=== PATIENT | female | born 1945 | race Caucasian/White ===

== ENCOUNTER → 2023-05-23 09:33 | Outpatient (REF) | payer OTHER, SELFPAY | LOC: RAD 09:33 | PROVIDERS: ATTENDING PHYSICIAN Family Medicine | DX: R05.3 Chronic cough (principal) | CPT/HCPCS: 71046 ==

== ENCOUNTER → 2023-08-26 14:27 | Outpatient (REF) | payer OTHER, SELFPAY | LOC: WDC 14:27 | PROVIDERS: ATTENDING PHYSICIAN Family Medicine | DX: Z12.31 Encounter for screening mammogram for malignant neoplasm of breast (principal); M81.0 Age-related osteoporosis without current pathological fracture | CPT/HCPCS: 77063; 77067; 77080 ==

== ENCOUNTER → 2024-04-02 06:48 | Outpatient (REF) | payer OTHER, SELFPAY | LOC: RAD 06:48 | PROVIDERS: ATTENDING PHYSICIAN Family Medicine | DX: I25.10 Atherosclerotic heart disease of native coronary artery without angina pectoris (principal) | CPT/HCPCS: 76770; 93880; 93925 ==

== ENCOUNTER 2024-07-16 21:25 | Emergency (ER) | payer OTHER, SELFPAY ==
[2024-07-16 21:28] VITALS: BP 102/73
[2024-07-17] MEDS: TYLENOL 1000 MG PO (00:33)
--- NOTE | 2024-07-17 02:26 | ED.GENMED ---
History of Present Illness
General
Chief Complaint: Musculo-Skeletal Complaint
Source: patient
Exam Limitations: none
Time Seen by Provider: 07/16/24 23:03
Nursing documentation reviewed up to this point in time: agreed with
History of Present Illness
History of Present Illness:
79-year-old female past medical history of CAD hypertension hyperlipidemia, diabetes presenting to the emergency department today with concerns of a mechanical fall hitting her right hip and left side of her head did not lose consciousness no nausea
vomiting numbness or weakness. Does have achiness somewhat diffusely maximal at the right hip.
Past History
Past History
ED Past Medical History: IDDM
ED Past Surgical History: Negative Cardiac
Social History
Tobacco: Non-smoker
Alcohol: Occasional
Drug: None
Living: with family
Employment: Retired
Family History
Family History: Diabetes
Review of Systems
Review of Systems
Allergies reviewed?: Yes
All Other Systems: ROS reviewed and negative except as documented in HPI and ROS
Phy Exam
Physical Exam
Physical Exam:
GENERAL: Alert , in no apparent distress
EYE: pupils equal and reactive
NECK: Supple, no significant adenopathy.
ENT: o/p clr, mmm.
CARDIAC: Regular rate and rhythm .
LUNGS: Clear breath sounds bilaterally, no acute respiratory distress, no wheezes/rales/rhonchi
ABDOMEN: Soft, without focal tenderness, no r/g, no cvat
NEUROLOGICAL: Alert and oriented, no focal neuro deficits 5 out of 5 upper and lower extremity strength normal sensation when palpating bilaterally normal finger-nose and [id number].
SKIN: Warm and dry, skin intact.
MUSCULOSKELETAL: No edema, well perfused.
PSYCH: Normal and appropriate interaction.
Course
Orders/Labs/Results
Orders:
Orders
07/17/24 00:21
CT Cervical Spine W/o Iv Contr Urgent
Comment:
Reason For Exam: fall neck pain
CT Head W/o Iv Contrast Urgent
Comment:
Reason For Exam: fall hit head
Ice Pack-Treatment DIRECTED
Location: anywhere/everywhere
Acetaminophen [Tylenol] 1,000 mg PO NOW STA
Hip, Right 2-3 Views [CR Hip - RT w/wo Pel 2-3 Vw*] Urgent
Comment:
Reason For Exam: hip pain
Include a pelvis x-ray?: Yes
Lumbar Spine, 2 or 3 View [CR Lumbar Spine 2 Or 3 Views] Urgent
Comment:
Reason For Exam: low aback pain
Vital Signs
Initial and Last Documented VS:
Initial Vital Signs
Temp Pulse Resp BP Pulse Ox
98.5 F 83 18 102/73 98
07/16/24 21:28 07/16/24 21:28 07/16/24 21:28 07/16/24 21:28 07/16/24 21:28
Last Documented Vital Signs
Temp Pulse Resp BP Pulse Ox
98.5 F 83 18 102/73 98
07/16/24 21:28 07/16/24 21:28 07/16/24 21:28 07/16/24 21:28 07/16/24 21:28
MDM/Problems Addressed
MDM/Problems Addressed:
79-year-old female presenting to the emergency department today with concerns of mechanical fall. Here she had head CT neck CT imaging of her right hip and low back without emergent injury. Patient with likely soft tissue injury plan for
symptomatic treatment stable for discharge return precautions given.
*Critical Care Note
Total Time (30-74mins, 75-104mins- exclusive of procedures): Not Applicable
ED Attending Note
-
Portions of this chart may have been created with voice recognition software.� Occasional wrong word or��sound alike� substitutions may have occurred due to the inherent limitations of voice recognition software.
Discharge Plan
Departure
Patient Disposition: Home (Routine Discharge)
Date of Disposition: 07/17/24
Time of Disposition: 02:28
Patient with high blood pressure during this ER visit?: No
Condition: Good
Covid-19: Not Applicable
Discharge Problem:
Fall
Instructions: Fall Prevention for Older Adults
Prescriptions:
No Action
metoprolol tartrate 100 MG tablet
100 mg PO BID
Patient Comments:
Lopressor
levothyroxine 50 MCG tablet
50 mcg PO DAILY
Patient Comments:
pat takes synthroid, not generic
ezetimibe 10 MG tablet
10 mg PO DAILY
rosuvastatin 20 MG tablet
20 mg PO HS
omeprazole magnesium [Prilosec OTC] 20 MG tablet,delayed release (DR/EC)
20 mg PO DAILY
valsartan-hydrochlorothiazide 1 EACH tablet
1 ea PO DAILY
Patient Comments:
160/25
pioglitazone 30 MG tablet
30 mg PO DAILY
Trulicity
1 dose INJ WEEKLY
Patient Comments:
pt not aware of dosage, pt took this this morning
acetaminophen 325 MG tablet
650 mg PO Q4HWA 0RF
Coq10
1 tab PO DAILY
aspirin 325 MG tablet
81 mg PO DAILY
famotidine 20 MG tablet
20 mg PO BID Qty: 28 0RF
Rx Instructions:
Take 20 mg twice a day for 14 days
ascorbic acid (vitamin C) [Vitamin C] 500 MG tablet
1,000 mg PO BID Qty: 56 0RF
Rx Instructions:
Take 1,000 mg twice a day for 14 days
albuterol sulfate 1 PUFF HFA aerosol inhaler
2 puff inhalation R Q4HPRN PRN (Reason: shortness of breath) Qty: 1 0RF
zinc sulfate 220 MG capsule
220 mg PO DAILY Qty: 14 0RF
Rx Instructions:
Take 220 mg daily for 14 days
cholecalciferol (vitamin D3) 1,000 UNITS tablet
2,000 units PO DAILY Qty: 28 0RF
Rx Instructions:
Take 2,000 units daily for 14 days
melatonin 5 MG tablet
5 mg PO HS Qty: 14 0RF
Rx Instructions:
Take 5 mg daily at bedtime for 14 days
Referrals:
Cecy Tadeo DO [Family Provider] -
Activity Restrictions/Additional Instructions:
You came to the emergency department today with concerns of bodyaches after a fall. Here you had imaging without emergent findings. Please take Tylenol and use ice and then heat. Please follow closely with your primary care doctor. Return for
any worsening, new or concerning symptoms.
Interventions
Interventions:
*Risk Screen - Suicide Last Done: 07/16/24 21:28
*General Assessment Last Done: 07/16/24 21:28
*Neglect/Abuse Screening Last Done: 07/16/24 21:28
*ED- Fall Risk Assessment Last Done: 07/16/24 21:28
*ED COVID-19 Vaccine History Last Done: 07/16/24 21:28
ED-Musculoskeletal Assessment Last Done: 07/16/24 22:07
Discharge Date and Time
Print Language: [place]
[2024-07-17 02:56] VITALS: BP 120/57
== END 2024-07-17 02:57 | disposition home or self-care (01) ==
LOC: EMR 21:25
PROVIDERS: EMERGENCY PHYSICIAN Student in an Organized Health Care Education/Training Program; FAMILY PHYSICIAN Family Medicine
DX: S09.90XA Unspecified injury of head, initial encounter (principal); W19.XXXA Unspecified fall, initial encounter; I25.10 Atherosclerotic heart disease of native coronary artery without angina pectoris; I10 Essential (primary) hypertension; E78.00 Pure hypercholesterolemia, unspecified; E11.9 Type 2 diabetes mellitus without complications; Z83.3 Family history of diabetes mellitus
CPT/HCPCS: 99284; 70450; 72100; 72125; 73502